=== PATIENT | male | born 1940 | race Caucasian/White ===

== ENCOUNTER 2024-01-14 10:28 | Emergency (ER) | payer MEDICARE, BC, SELFPAY ==
[2024-01-14 10:37] VITALS: BP 125/65; PULSE 48; RESP 16; TEMP 36.2; O2SAT 99
--- NOTE | 2024-01-14 11:02 | ED.GENADULT ---
HPI - General Adult General Chief complaint: Unspecified Stated complaint: TROUBLE SWALLOWING Time Seen by Provider: 01/14/24 11:02 Source: patient Mode of arrival: ambulatory Limitations: no limitations History of Present Illness HPI narrative: 83-year-old male presents with complaint of sore throat, sensation of throat swelling, fatigue, body aches and mild cough the past 2-3 days. Afebrile. No distress noted. No difficulty swallowing liquids or solids. Has not taking any [id number] medications to treat pain. Patient here from out of town visiting friends. All systems reviewed and negative except as noted above. Related Data Home Medications Medication Instructions Recorded Confirmed amlodipine 5 mg tablet 5 mg PO DAILY 01/14/24 01/14/24 gabapentin 300 mg capsule 300 mg PO BID 01/14/24 01/14/24 insulin lispro protamine-lispro 25 unit subcut BID 01/14/24 01/14/24 100 unit/mL (75-25) subcutaneous pen (Humalog Mix 75-25 KwikPen) losartan 100 mg tablet 100 mg PO DAILY 01/14/24 01/14/24 tamsulosin 0.4 mg capsule 0.4 mg PO DAILY 01/14/24 01/14/24 Allergies Allergy/AdvReac Type Severity Reaction Status Date / Time No Known Allergies Allergy Verified 01/14/24 10:59 Review of Systems Review of Systems: CONSTITUTIONAL: Denies fever, chills, or sweats. Reports fatigue. EYES: Denies visual changes, redness, or discharge. ENT: Denies rhinorrhea, congestion. Reports sore throat. Denies otalgia. CARDIOVASCULAR: Denies chest pain, palpitations, or edema. RESPIRATORY: Reports cough. Denies dyspnea. GASTROINTESTINAL: Denies abdominal pain, nausea, vomiting, or diarrhea. GENITOURINARY: Denies dysuria or hematuria. SKIN: Denies rash or itching. MUSCULOSKELETAL: Denies back pain, joint pain, or myalgia. NEUROLOGIC: Denies headache, numbness, or weakness. PSYCHIATRIC: Denies anxiety or depression. All other systems reviewed are negative, except as documented in HPI. PMFSH Comments At time of signature, agree with nursing past medical, surgical, social and family history. There is no relevant family history pertinent to the presenting complaint. Exam Narrative: GENERAL: This is a well-nourished, well-developed patient, in no apparent distress. HEAD: normocephalic, atraumatic. EYES: PERRL. Sclera clear/white. Vision is grossly intact. EARS: External ears normal, auditory canals clear and without drainage, TMs normal without perforation. Hearing grossly intact. NOSE: External nose normal with no obvious nasal discharge, nares without redness, no rhinorrhea. THROAT: Mucous membranes moist, erythema and swelling to posterior pharynx without exudates. Tonsils 1+ bilaterally. NECK: Neck supple, non-tender without lymphadenopathy, masses or thyromegaly. CARDIOVASCULAR: Regular rate and rhythm without murmurs, gallops, or rubs. RESPIRATORY: Clear to auscultation. Breath sounds equal bilaterally. No wheezes, rales, or rhonchi. SKIN: warm, Dry, intact with no suspicious lesions or rash, good texture and turgor. NEURO: awake, alert, and oriented to person, place and time. There were no obvious focal neurologic abnormalities. EXTREMITIES: No joint tenderness, effusion, or edema noted. Course Course Level of Care: Express Care Visit Vital Signs Vital signs: Vital Signs Temperature 36.2 C L 01/14/24 10:37 Pulse Rate 48 L 01/14/24 10:37 Respiratory Rate 16 01/14/24 10:37 Blood Pressure 125/65 01/14/24 10:37 Pulse Oximetry 99 01/14/24 10:37 Temperature 36.2 C L 01/14/24 10:37 Pulse Rate 48 L 01/14/24 10:37 Respiratory Rate 16 01/14/24 10:37 Blood Pressure 125/65 01/14/24 10:37 Pulse Oximetry 99 01/14/24 10:37 Oxygen Delivery Room Air 01/14/24 10:45 Reviewed Medical Decision Making MDM Narrative Medical decision making narrative: Patient is aware of diagnosis, understands and agrees to treatment plan. Anticipatory guidance given. Patient agrees to follow-up as di
== END 2024-01-14 11:29 | disposition home or self-care (01) ==
PROVIDERS: Emergency Provider Nurse Practitioner Family
DX: J02.9 Acute pharyngitis, unspecified (principal); Z20.822 Contact with and (suspected) exposure to COVID-19
CPT/HCPCS: 87081; 87426; 87804; 87880; 99213; G0463